=== PATIENT | male | born 1935 | race Caucasian/White ===

== ENCOUNTER 2021-09-05 15:07 | Outpatient (CLI) | payer MEDICARE, SELFPAY | END 2021-09-05 15:08 | disposition home or self-care (01) | LOC: AMB 09-16 08:57 | PROVIDERS: PCP Family Medicine; Visit Provider Emergency Medicine Emergency Medical Services | DX: R53.1 Weakness (principal); S09.90XA Unspecified injury of head, initial encounter; W18.30XA Fall on same level, unspecified, initial encounter; Y92.030 Kitchen in apartment as the place of occurrence of the external cause | CPT/HCPCS: A0425; A0428; A0429 ==

== ENCOUNTER 2021-09-05 15:56 | Emergency (ER) | payer MEDICARE, SELFPAY ==
[2021-09-05 15:56] VITALS: BP 144/92; TEMP 36.2; O2SAT 95; BMI 26.5
[2021-09-05 16:00] VITALS: BP 135/84; BP 135/85; PULSE 68; PULSE 69; RESP 14; O2SAT 94; O2SAT 95
--- NOTE | 2021-09-05 16:57 | CRLHL7_ITS ---
For Patients: As a result of the Century Cures Act, medical imaging exams and procedure reports are released immediately into your electronic medical record. You may view this report before your referring provider. If you have questions, please contact your health care provider. INDICATION: Trauma. TECHNIQUE: Noncontrast axial images. Sagittal and coronal reconstructions. COMPARISON: None. FINDINGS: No abnormal prevertebral soft tissue swelling. No vertebral body malalignment or facet joint subluxation or dislocation. No cervical spine fracture. 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 Moderate to advanced multilevel facet arthrosis. Disc bulge osteophyte complexes are noted at multiple levels, resulting in narrowing of the central spinal canal, which is most significant at C3-4. There is bilateral neural foraminal stenosis at C3-4 and C5-6, and right-sided neural foraminal stenosis at C4-5. IMPRESSION: 1. No cervical spine fracture or traumatic malalignment. 2. Cervical spondylosis as noted above. Dictated by Mu Tam MD @ 09/05/2021 7:10:04 PM Please note that all CT scans at this facility use dose modulation, iterative reconstruction, and/or weight-based dosing when appropriate to reduce radiation dose to as low as reasonably achievable. Dictated by: Mu Tam MD @ 09/05/2021 19:10:14 (Electronically Signed)
--- NOTE | 2021-09-05 16:57 | CRLHL7_ITS ---
For Patients: As a result of the Century Cures Act, medical imaging exams and procedure reports are released immediately into your electronic medical record. You may view this report before your referring provider. If you have questions, please contact your health care provider. INDICATION: Trauma. TECHNIQUE: Axial images. Sagittal and coronal reconstructions. COMPARISON: 01/13/2021. FINDINGS: No skull fracture is identified. There is no abnormal intracranial mass effect or midline shift. No acute intracranial hemorrhage. No new areas of abnormal attenuation are seen within the brain. Stable size and configuration of the CSF spaces. No acute intraorbital abnormality. The paranasal sinuses and mastoids are clear. IMPRESSION: No CT evidence of an acute intracranial abnormality. Dictated by Mu Tam MD @ 09/05/2021 7:01:45 PM Please note that all CT scans at this facility use dose modulation, iterative reconstruction, and/or weight-based dosing when appropriate to reduce radiation dose to as low as reasonably achievable. Dictated by: Mu Tam MD @ 09/05/2021 19:01:59 (Electronically Signed)
--- NOTE | 2021-09-05 16:59 | ED.NURSE ---
Spoke with Dana, on telephone to give update.
[2021-09-05 17:00] VITALS: BP 136/87; PULSE 71; O2SAT 97
--- NOTE | 2021-09-05 17:02 | ED.GENADULT ---
HPI - General Adult General Date Seen: 09/05/21 Chief complaint: Weakness Stated complaint: Fall Time Seen by Provider: 09/05/21 16:32 Source: patient History of Present Illness HPI narrative: Patient is an 86-year-old male who had a fall at home today. He was using his walker, which he is dependent on for walking around, he says he reached forward to grab something, lost his balance and fell back. He hit the back of his head he says very hard on the ground. He denies loss of consciousness, he says he called his right away but even with her help they were unable to get him up. He says that for the past couple of years he has had significantly worsening weakness, and in the past month he has had 3 falls. 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 He was discharged from [facility] about a year ago, as it sounds like they did not feel they had anything else to offer him. He had been going to physical therapy although he stop doing that about a year ago. He says he had talked to Dr. Quintero about resuming that a month ago but hadn't heard anything back. He feels significantly deconditioned, and the past month has been feeling or concerned about his safety at home. He and his have been talking about the possibility of his needing different living conditions. With regard to today's fall, he does not have any significant headache, has not had any nausea or vomiting. He has tightness in his neck although he denies neck pain. He does not have any radiating pain in his arms, no numbness or new weakness. He has generalized weakness in his arms and legs which has been ongoing for the past 2 years. He does not have any chest or back pain. He denies any difficulty breathing. He denies any extremity or abdominal pain. No recent illness, fevers, vomiting, diarrhea, black or bloody stools. No acute changes in his condition. Related Data Home Medications Medication Instructions Recorded Confirmed aspirin 81 mg capsule 81 mg PO DAILY 09/05/21 09/05/21 fluticasone propionate INHALATION 09/05/21 melatonin PO 09/05/21 multivitamin (Daily Vitamin 1 tab PO DAILY 06/30/22 06/30/22 Formula tablet) naproxen sodium 220 mg capsule 220 mg PO BID PRN 09/05/21 09/05/21 (Aleve) Allergies Allergy/AdvReac Type Severity Reaction Status Date / Time cat dander Allergy Mild Verified 09/05/21 16:05 Review of Systems Status of ROS: Reports: 10 or more systems reviewed and unremarkable except as noted in History and below [facility] Medical History No significant past medical history Surgical History History of appendectomy S/P colon resection S/P knee replacement S/P shoulder surgery Social History Smoking Status: Former smoker What tobacco products do you use: cigarettes Smoking quit date/years: >15 years ago Do you use any of these nicotine containing products: None Second hand tobacco smoke exposure: No How often do you have a drink containing alcohol: 2-3 times a week How many standard drinks containing alcohol do you have on a typical day: 1 or 2 How often do you have six or more drinks on one occasion: Daily or almost daily AUDIT-C Alcohol total score: 7 Non-prescribed substance use: denies use Exam Narrative: Exam Narrative: Vital signs as noted above. In general, an alert, nontoxic elderly male. Cervical collar in place. Head: Normocephalic, atraumatic. No hematoma or tenderness. Eyes: Pupils are equal reactive. Extraocular movements are full. Conjunctivae are normal. ENT: Mucous membranes are moist. Throat is normal. Neck: Nontender to palpation. Heart: Regular rate and rhythm. No murmur or rub. Chest is nontender. Lungs: Clear bilaterally. No increased work of breathing, crackles or wheezes. Abdomen: Soft and nontender. No organomegaly. Back: Nontender to palpation. Extremities: Well perfused. No edema. No calf tenderness. Pulses intact. Extremities are nontender, I am able to move bilateral hips without any pain. Neurologic: Patient is alert and oriented to person and place. Speech is fluent. Face is symmetric. Moves all extremities equally. He is able to walk with his walker, although he does require some monitoring. Affect: Normal. Skin: Warm and dry. Well perfused. Const: Vital Signs, click to edit/add: Vital Signs - 24 hr 09/05/21 15:56 09/05/21 16:00 09/05/21 17:00 Temperature 97.2 F L Pulse Rate [Pulse Oximeter] 68 71 Respiratory Rate 14 Blood Pressure [Le ft Upper Arm] 144/92 H 135/84 136/87 Pulse Oximetry 95 95 97 09/05/21 18:00 09/05/21 18:35 Temperature Pulse Rate [Pulse Oximeter] 77 70 Respiratory Rate 14 Blood Pressure [Le ft Upper Arm] 146/90 H 146/79 H Pulse Oximetry 98 96 Documenting provider has reviewed patient's vital signs: yes Course Course Hospital Course: Following initial evaluation, I did order a CT of the head as well as a CT of the cervical spine given head injury with some neck tightness today. By my review, the CT of the head does not show any intracranial hemorrhage or other acute findings. The final radiology read is likewise negative. CT of the cervical spine was read by Radiology as negative for fracture or soft tissue swelling. Cervical collar was removed and he feels much better out of the collar which was becoming quite uncomfortable for him. He does not have any pain moving his neck. I had a lengthy conversation with Mr. Bhardwaj about his current circumstances. He is clearly very distraught about how much strength and independence he has lost over the past several years. He tells me that he and his really agree at this point that he needs more care. There at [facility] and apparently have options in terms of switching to assisted living. They have looked at a place where they could live together, but he says that his thinks they are little bit depressing, and they are considering living perhaps in different facilities, her staying in their current condo and him living across the street in assisted living. This clearly is somewhat distressing to him. It does not sound like they have a clear plan in place at this time. I did really encouraged him to get back involved with physical therapy, as I think he would benefit if nothing else from better strength and conditioning. Initially, he had expressed to the nurse a desire to stay in the hospital tonight, with a plan to go to an assisted living tomorrow. Given that they do not have a specific assisted living plan in place, the hospitalist was concerned that there would not be any kind of disposition available tomorrow. Due to current constraints with bed availability and staffing, the hospitalist did not feel that we could reasonably keep him here while awaiting disposition to whatever assisted living/detention option might eventually be available, given that he is, in fact able to be ambulatory at this time. I spoke with his on the phone as well, who is clearly frustrated that we are not keeping him in the hospital. Ultimately, it seems that she really just wanted him admitted tonight so that she could have a break. It sounds as if she is pretty tired of her chronic weatherization and housing inspector role, and of course is also concerned about his frequent falls I did offer to talk with the hospitalist again about keeping him overnight just to give her night off, with discharge tomorrow back to home, but she said she already had [facility] scheduled to come again tomorrow and she did not want to change those plans. Ultimately, I again think that he really does need different living arrangements, and encouraged her to keep working toward those in as timely manner as possible. For today, I do not see any evidence of injuries. His fall was related to a loss of balance due to his chronic condition and I do not think further workup is needed today. Vital Signs Vital signs: Initial Vital Signs Temperature 97.2 F L 09/05/21 15:56 Temperature Source Temporal Artery Scan 09/05/21 15:56 Blood Pressure 144/92 H 09/05/21 15:56 Blood Pressure Mean 109 09/05/21 15:56 Blood Pressure Position Supine 09/05/21 15:56 Pulse Oximetry 95 09/05/21 15:56 Oxygen Delivery Method 09/05/21 15:56 Vital Signs Temperature 97.2 F L 09/05/21 15:56 Blood Pressure 144/92 H 09/05/21 15:56 Pulse Oximetry 95 09/05/21 15:56 Temperature 97.2 F L 09/05/21 15:56 Pulse Rate 70 09/05/21 18:35 Respiratory Rate 14 09/05/21 18:35 Blood Pressure 146/79 H 09/05/21 18:35 Pulse Oximetry 96 09/05/21 18:35 Discharge Plan Discharge Clinical Impression: Fall Patient Disposition: Home, Self-Care Condition: Stable Instructions: Fall Prevention for Older Adults (ED) Additional Instructions: Continue work toward alternate living arrangements. Physical therapy as we discussed. Primary care follow-up as needed. Prescriptions: No Action aspirin 81 mg capsule 81 mg PO DAILY 0RF melatonin PO 0RF fluticasone propionate inhalation 0RF naproxen sodium [Aleve] 220 mg capsule 220 mg PO BID PRN0RF multivitamin [Daily Vitamin Formula] Tablet 1 tab PO DAILY 0RF Follow Up/Referrals: Hipolito Quintero MD [Primary Care Provider] - Stand Alone Forms: Yesmail Info Instructions
--- NOTE | 2021-09-05 17:58 | ED.NURSE ---
Patient helped to talk with via telephone.
[2021-09-05 18:00] VITALS: BP 146/90; PULSE 77; O2SAT 98
[2021-09-05 18:35] VITALS: BP 146/79; PULSE 70; RESP 14; O2SAT 96
--- NOTE | 2021-09-05 19:02 | ED.NURSE ---
Rounded on patient. Has discomfort from c-collar. MD notified, will await results from CT scans prior to taken off.
--- NOTE | 2021-09-05 19:37 | ED.NURSE ---
C-collar removed. Patient did trial ambulation, did not feel stable and needed to return to the room after a few feet. MD updated. Patient brought food and drink.
--- NOTE | 2021-09-05 20:00 | ED.NURSE ---
Spoke with patient and about discharge plan back to home. Both patient and has concerns about his safety. These were relayed back to MD and phone between and MD was facilitated.
--- NOTE | 2021-09-05 21:11 | PC.NURSE ---
Recieved a call from BERNY Concepcion for pt [phone]. She stated he would need transportation home and help getting into his bed. ED charge notified.
--- NOTE | 2021-09-05 21:52 | ED.NURSE ---
Spoke with BERNY about discharge plan to return patient home. They report that the only safe way to get him home is via ambulance.
== END 2021-09-05 22:00 | disposition home or self-care (01) ==
PROVIDERS: Emergency Provider Emergency Medicine; PCP Family Medicine
DX: R26.89 Other abnormalities of gait and mobility (principal); W19.XXXA Unspecified fall, initial encounter
CPT/HCPCS: 70450; 72125; 99284; 99285; 99291; G0390

== ENCOUNTER 2021-09-05 21:48 | Outpatient (CLI) | payer MEDICARE, SELFPAY | END 2021-09-05 21:49 | disposition home or self-care (01) | LOC: AMB 09-16 10:03 | PROVIDERS: PCP Family Medicine; Visit Provider Emergency Medicine | DX: R53.1 Weakness (principal); R26.9 Unspecified abnormalities of gait and mobility; M54.2 Cervicalgia | CPT/HCPCS: A0425; A0428 ==

== ENCOUNTER 2022-04-28 22:04 | Outpatient (CLI) | payer MEDICARE, SELFPAY | END 2022-04-28 22:05 | disposition home or self-care (01) | LOC: AMB 04-29 11:20 | PROVIDERS: PCP Family Medicine; Visit Provider Family Medicine | DX: S79.911A Unspecified injury of right hip, initial encounter (principal); W18.39XA Other fall on same level, initial encounter; Y92.031 Bathroom in apartment as the place of occurrence of the external cause | CPT/HCPCS: A0425; A0429 ==

== ENCOUNTER 2022-04-28 22:38 | Inpatient (IN) | payer MEDICARE, SELFPAY ==
[2022-04-28 22:45] VITALS: BP 185/101; PULSE 71; TEMP 36.3; O2SAT 97; BMI 27.5
[2022-04-28 23:44] VITALS: BP 163/98; PULSE 78; RESP 16; O2SAT 97
[2022-04-29] VITALS (30 sets, daily range): BP systolic 104–189; BP diastolic 67–108; PULSE 59–102; RESP 14–20; TEMP 35.7–37.1; O2SAT 92–100; BMI 27.5
--- NOTE | 2022-04-29 00:02 | CRLHL7_ITS ---
For Patients: As a result of the Century Cures Act, medical imaging exams and procedure reports are released immediately into your electronic medical record. You may view this report before your referring provider. If you have questions, please contact your health care provider. Indication: Fall Technique: Frontal view pelvis, two-view right hip Comparison: None Findings: Bones: Mildly displaced right femoral neck fracture. Joint spaces: Mild degenerative changes in the right hip joint. Soft tissues: Unremarkable. Impression: Acute right femoral neck fracture. Dictated by Cookie Denny MD @ 04/29/2022 1:06:36 AM (Electronically Signed)
--- NOTE | 2022-04-29 00:02 | ED.NURSE ---
Soft collar applied for comfort.
[2022-04-29] MEDS: fentaNYL 100 MCG/2 ML inj 50 MCG IVP (00:16)
--- NOTE | 2022-04-29 00:30 | CRLHL7_ITS ---
For Patients: As a result of the Century Cures Act, medical imaging exams and procedure reports are released immediately into your electronic medical record. You may view this report before your referring provider. If you have questions, please contact your health care provider. Indication: Fall Technique: Chest 1 view Comparison: None Findings/Impression: Cardiovascular and mediastinum: Heart size and vasculature are normal in caliber and appearance. Mediastinum is within normal limits. Lungs and pleural space: Lungs are clear. No sign of infiltrate or mass. No sign of pleural effusion. No pneumothorax. Bones and soft tissues: Severe degenerative changes in the left glenohumeral joint. Dictated by Cookie Denny MD @ 04/29/2022 1:07:40 AM (Electronically Signed)
[2022-04-29 01:19] LABS: SARS PCR* Negative SARS-CoV-2 (Negative)
[2022-04-29] MEDS: 0.9 % SODIUM CHLORIDE 1000 ml 1,000 ML IV (02:04)
--- NOTE | 2022-04-29 02:13 | ED.NURSE ---
Report to Med Surg. Patient will be going to room 257.
[2022-04-29 02:16] LABS: Basophils Absolute Auto 0.02 K/uL (0.00-0.30); Basophils Percent Auto 0.2 % (0.0-3.0); Eosinophils Percent Auto 1.1 % (0.0-7.0); Hematocrit 43.7 % (37.0-53.0); Hemoglobin* 14.6 gm/dL (13.5-17.5); Immature Granulocytes Abs Auto 0.03 K/uL (0.00-0.30); Immature Granulocytes Pct Auto 0.3 %; Lymphocytes Percent Auto 14.1 % (20-44); Mean Corpuscular HGB Conc 33 gm/dL (32-36); Mean Corpuscular Hemoglobin 31 pg (26-34); Mean Corpuscular Volume 91 fL (80-100); Monocytes Percent Auto 6.1 % (0.0-11.0); Neutrophils Percent Auto 78.2 % (42.0-72.0); Platelet Count* 236 K/uL (140-440); RDW Coefficient of Variation % 12.6 % (11.5-15.5); Red Blood Count 4.78 m/uL (4.30-5.90); White Blood Count* 9.52 K/uL (4.50-11.00)
[2022-04-29 02:20] LABS: Slide Review Reflex No
[2022-04-29] MEDS: fentaNYL 100 MCG/2 ML inj 25 MCG IVP ×2 (02:27→06:54)
[2022-04-29 02:29] LABS: Sodium* 139 mmol/L (135-149)
[2022-04-29 02:30] LABS: Blood Urea Nitrogen* 21 mg/dL (7-30); Carbon Dioxide* 27 mmol/L (20-32); Creatinine* 0.8 mg/dL (0.5-1.5); Est. Creatinine Clearance* 58.57; Estimated Glomerular Filt Rate 87 ml/min; Glucose* 108 mg/dL (60-115); Potassium* 4.1 mmol/L (3.6-5.1)
[2022-04-29 02:31] LABS: Calcium* 8.6 mg/dL (8.4-10.6)
[2022-04-29 02:49] LABS: Chloride* 108 mmol/L (96-114)
--- NOTE | 2022-04-29 03:57 | P.IMCN_ITS ---
Date of Consult Consult date: 04/29/22 Primary Care Provider: Hipolito Quintero MD Consult Narrative Narrative: Wicho Bhardwaj is a 86 [address] old [address] [facility] Medical History No significant past medical history Surgical History History of appendectomy S/P colon resection S/P knee replacement S/P shoulder surgery Social History (Updated 09/05/21 @ 23:08 by Lia Streeter MD) Highest level of school completed/degree received: Doctoral degree Smoking Status: Former smoker Do you use any of these nicotine containing products: None Second hand tobacco smoke exposure: No How often do you have a drink containing alcohol: never How often do you have six or more drinks on one occasion: Never AUDIT-C Alcohol total score: 0 Non-prescribed substance use: denies use Caffeine: Yes service: Yes Meds Home Medications and Allergies Home Medications Medication Instructions Recorded Confirmed Type aspirin 81 mg capsule 81 mg PO DAILY 09/05/21 03/12/22 History fluticasone propionate inhalation 09/05/21 03/12/22 History melatonin PO 09/05/21 03/12/22 History multivitamin (Daily Vitamin 1 tab PO DAILY 09/05/21 03/12/22 History Formula tablet) naproxen sodium 220 mg capsule 220 mg PO BID PRN 09/05/21 03/12/22 History (Aleve) Allergies Allergy/AdvReac Type Severity Reaction Status Date / Time cat dander Allergy Mild Verified 03/12/22 11:27 Exam Const: Vital Signs, click to edit/add: Vital Signs - 24 hr 04/28/22 22:45 04/28/22 23:44 04/29/22 00:46 Temperature 97.3 F L Pulse Rate Pulse Rate [Pulse Oximeter] 71 78 70 Respiratory Rate 16 16 Blood Pressure Blood Pressure [Le ft Arm] Blood Pressure [Ri ght Upper Arm] 185/101 H 163/98 H 189/94 H Pulse Oximetry 97 97 96 Oxygen Delivery Me thod Room Air Room Air Room Air 04/29/22 00:45 04/29/22 00:46 04/29/22 01:00 Temperature Pulse Rate 65 74 66 Pulse Rate [Pulse Oximeter] Respiratory Rate Blood Pressure 189/94 H Blood Pressure [Le ft Arm] Blood Pressure [Ri ght Upper Arm] Pulse Oximetry 93 93 93 Oxygen Delivery Me thod 04/29/22 01:02 04/29/22 01:03 04/29/22 01:15 Temperature Pulse Rate 72 69 59 L Pulse Rate [Pulse Oximeter] Respiratory Rate Blood Pressure 135/89 Blood Pressure [Le ft Arm] Blood Pressure [Ri ght Upper Arm] Pulse Oximetry 94 93 92 Oxygen Delivery Me thod 04/29/22 01:30 04/29/22 01:45 04/29/22 02:02 Temperature Pulse Rate 65 72 72 Pulse Rate [Pulse Oximeter] Respiratory Rate Blood Pressure 167/107 H Blood Pressure [Le ft Arm] Blood Pressure [Ri ght Upper Arm] Pulse Oximetry 93 93 93 Oxygen Delivery Me thod 04/29/22 02:19 04/29/22 02:37 04/29/22 02:37 Temperature 98 F Pulse Rate 82 Pulse Rate [Pulse Oximeter] 87 Respiratory Rate 18 18 Blood Pressure 170/98 H Blood Pressure [Le ft Arm] 152/86 H Blood Pressure [Ri ght Upper Arm] Pulse Oximetry 95 94 94 Oxygen Delivery Me thod Room Air Room Air Labs Labs: Short CBC 04/29/22 Range/Units 02:05 WBC 9.52 (4.50-11.00) K/uL Hgb 14.6 (13.5-17.5) gm/dL Hct 43.7 (37.0-53.0) % Plt Count 236 (140-440) K/uL BMP 04/29/22 02:05 Sodium 139 Potassium 4.1 Chloride 108 Carbon Dioxide 27 BUN 21 Creatinine 0.8 Glucose 108 Calcium 8.6 Assessment and Plan Assessment and plan (1) Femoral neck fracture: [facility]: [facility] NOTE eHospitalist was contacted by Dr. Lacy with request of admission support for Mr. Wicho Bhardwaj HPI: In summary Mr. Bhardwaj is a very pleasant 86-year-old gentleman with medical history of insomnia, gait disturbance, nonspecific cerebellar degeneration disorder, and progressive deconditioning, baseline needing walker still having falls 3 in the last 6 months and more than that in the preceding year. He was at his baseline health when he was about to go to his bed on the night of , he states he had taken Ambien, although I could not see on his med list although there is melatonin, he was trying to turn around to find his way when by unknown mechanism he fell down onto the ground hitting his back and head without losing consciousness, having any palpitations or other symptoms. He denies any headache, dizziness focal weakness following the event. He does not take any anticoagulants but takes baby aspirin for primary prophylaxis, denies any heart disease, diabetes or CKD. Immediately after that he started having severe right hip pain and inability to ambulate, he had to be supported and brought to ER where evaluation by x-ray showed right femoral neck fracture. He was given fentanyl for pain control, lab work including CBC and BMP were within normal limits. Emergency provider consulted orthopedics who will see the patient tomorrow for likely surgical fixation. Last time he had shoulder surgery in 2009., Is not much physically active due to gait disturbance. But denies any chest pain. Denies any other extremity pain and limitation of movement or deficit. No nausea or vomiting. Home Medications: Melatonin, aspirin, fluticasone, multivitamin, naproxen,? Ambien as per patient's verbal report although no record found Pertinent Medical History: Insomnia, gait disturbance, degenerative cerebellar disorder Pertinent Social History: Uses walker to walk, lives at home Exam (performed via interactive video with assistance of bedside nurse): General: [alert, cooperative, no acute distress] HEENT: EOMI grossly [oral mucosa moist without erythema] Lungs: [Equal air entry bilaterally , no wheeze] CV: [regular rate and rhythm without loud murmur rub or gallop] Abd: [denies tenderness and does not exhibit signs of pain with palpation done by bedside nurse] Ext: [no pitting edema noted] movement on right lower extremity deferred due to anticipated pain given fracture. Skin: [no rashes, bruises or lesions appreciated on gross visualization of exposed skin] Neuro: [alert, oriented x . EOMI, moves all extremities without any significant focal deficit appreciated by nurse] Assessment and Plan: Fall from standing height in elderly, likely related to gait and equilibrium disorder Acute right femoral neck fracture secondary to above N.p.o., orthopedics eval in the morning for likely surgical repair after discussion with patient Pain control with fentanyl, as needed MiraLAX LR 75 cc/h while n.p.o. Patient reports taking his insomnia pill already, he reports it is Ambien, I see melatonin though on his list Avoid Ambien in future if possible as it can increase the chances of fall by drowsiness Hold aspirin that he takes for primary prophylaxis Stable comorbidities For gait disorder recommend outpatient physical therapy and encourage use of ambulatory assist devices Degenerative cerebellar disorder, physical deconditioning Resume appropriate home medications once reconciled, patient having hard time to remember his meds at this time Patient has requested DNR, SCDs for DVT prophylaxis, postop will need chemical prophylaxis, defer to orthopedics, nonweightbearing on right lower extremity for now Thank you for including [facility] Hospitalist in the patients care. This ser vice is available for further assistance as requested by your care team by calling [phone].
--- NOTE | 2022-04-29 04:24 | ED_ITS ---
HPI - Fall General Chief Complaint: Fall/Minor Trauma Stated Complaint: hip injury Time Seen by Provider: 04/28/22 23:00 History of Present Illness HPI Narrative: 86-year-old man presenting to the emergency department via EMS following a fall outside. He was with his walker and [employer]. Head was apparently controlled. Did not hit head. There was no syncope. 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 Had been evaluated for Parkinson's but this was thought not to be the case. He is not anticoagulated but does take a daily low- dose aspirin. There is no described lightheadedness or shortness of breath around this fall. He does however complain of right mid thigh area pain. He is thinking he did not hurt his hip due to this mid thigh location of pain. Any movement hurts a great deal. Does have chronic neck pain. No exacerbation of this really. No back pain. Related Data Home Medications Medication Instructions Recorded Confirmed aspirin 81 mg capsule 81 mg PO DAILY 09/05/21 03/12/22 fluticasone propionate inhalation 09/05/21 03/12/22 melatonin PO 09/05/21 03/12/22 multivitamin (Daily Vitamin 1 tab PO DAILY 09/05/21 03/12/22 Formula tablet) naproxen sodium 220 mg capsule 220 mg PO BID PRN 09/05/21 03/12/22 (Aleve) Allergies Allergy/AdvReac Type Severity Reaction Status Date / Time cat dander Allergy Mild Verified 03/12/22 11:27 Review of Systems Status of ROS: Reports: 6 or more systems reviewed and unremarkable except as noted in History and below [facility] Medical History No significant past medical history Surgical History History of appendectomy S/P colon resection S/P knee replacement S/P shoulder surgery Social History Highest level of school completed/degree received: Doctoral degree Smoking Status: Former smoker Do you use any of these nicotine containing products: None Second hand tobacco smoke exposure: No How often do you have a drink containing alcohol: never How often do you have six or more drinks on one occasion: Never AUDIT-C Alcohol total score: 0 Non-prescribed substance use: denies use Caffeine: Yes service: Yes Exam Narrative: Exam Narrative: Very pleasant. At times hesitating in speech. Mildly hard of hearing. Eyes are moist. Skin is warm and dry. Head does look to be atraumatic. Neck is a little stiff. A little sore in the paracervical musculature. No back pain to palpation. Lungs appear to be clear. Heart is in a regular rate and rhythm. Abdomen is soft and nontender. There is no pain to palpation over the anterior iliac crest nor is there appreciable instability. Trace dependent pretibial edema. The right leg is outwardly rotated. Pain is not exactly reproducible to palpation about the thigh as he notes. There is though pain to any movement of the right leg. Well perfused peripherally. Const: Vital Signs, click to edit/add: Vital Signs - 24 hr 04/28/22 22:45 04/28/22 23:44 04/29/22 00:46 Temperature 97.3 F L Pulse Rate Pulse Rate [Pulse Oximeter] 71 78 70 Respiratory Rate 16 16 Blood Pressure Blood Pressure [Ri ght Upper Arm] 185/101 H 163/98 H 189/94 H Pulse Oximetry 97 97 96 Oxygen Delivery Me thod Room Air Room Air Room Air 04/29/22 00:45 04/29/22 00:46 04/29/22 01:00 Temperature Pulse Rate 65 74 66 Pulse Rate [Pulse Oximeter] Respiratory Rate Blood Pressure 189/94 H Blood Pressure [Ri ght Upper Arm] Pulse Oximetry 93 93 93 Oxygen Delivery Me thod 04/29/22 01:02 04/29/22 01:03 04/29/22 01:15 Temperature Pulse Rate 72 69 59 L Pulse Rate [Pulse Oximeter] Respiratory Rate Blood Pressure 135/89 Blood Pressure [Ri ght Upper Arm] Pulse Oximetry 94 93 92 Oxygen Delivery Me thod 04/29/22 01:30 04/29/22 01:45 04/29/22 02:02 Temperature Pulse Rate 65 72 72 Pulse Rate [Pulse Oximeter] Respiratory Rate Blood Pressure 167/107 H Blood Pressure [Ri ght Upper Arm] Pulse Oximetry 93 93 93 Oxygen Delivery Me thod 04/29/22 02:19 Temperature Pulse Rate 82 Pulse Rate [Pulse Oximeter] Respiratory Rate Blood Pressure 170/98 H Blood Pressure [Ri ght Upper Arm] Pulse Oximetry 95 Oxygen Delivery Me thod Documenting provider has reviewed patient's vital signs: yes Course Vital Signs Vital signs: Initial Vital Signs Temperature 97.3 F L 04/28/22 22:45 Temperature Source Temporal Artery Scan 04/28/22 22:45 Pulse Rate 71 04/28/22 22:45 Blood Pressure 185/101 H 04/28/22 22:45 Blood Pressure Mean 129 04/28/22 22:45 Blood Pressure Position Supine 04/28/22 22:45 Pulse Oximetry 97 04/28/22 22:45 Oxygen Delivery Method 04/28/22 22:45 Vital Signs Temperature 97.3 F L 04/28/22 22:45 Pulse Rate 71 04/28/22 22:45 Blood Pressure 185/101 H 04/28/22 22:45 Pulse Oximetry 97 04/28/22 22:45 Oxygen Delivery Method 04/28/22 22:45 Temperature 98 F 04/29/22 02:37 Pulse Rate 87 04/29/22 02:37 Respiratory Rate 18 04/29/22 02:37 Blood Pressure 152/86 H 04/29/22 02:37 Pulse Oximetry 94 04/29/22 02:37 Oxygen Delivery Method 04/29/22 02:37 MDM - Fall MDM Narrative Medical decision making narrative: Unfortunate fall in setting of chronic gait instability. I would suspect a right hip fracture somewhere. Possible pelvic involvement otherwise. Does not appear to have been a syncopal event so unnecessary cardiac or CVA workup. This does not appear to be infectious either. Prior to imaging was given dose of fentanyl. Was also initiated on a L of normal saline. Initial x-ray of the right hip does show by my read a femoral neck fracture mildly displaced. As moving towards potential surgery, chest x-ray is also done. One-view chest by my read is without infiltrate or acute cardiopulmonary abnormality. Normal cardiac silhouette. I called to Orthopedics. They anticipate seeing Mr. Bhardwaj in the morning. Admitted after discussion with hospitalist coverage. Medical Records Attestation: I reviewed the patient's medical records. Lab Data Attestation: I reviewed the patient's lab results. Labs: Lab Results 04/29/22 04/29/22 04/29/22 Range/Units 00:36 02:05 02:05 WBC 9.52 (4.50-11.00) K/uL RBC 4.78 (4.30-5.90) m/uL Hgb 14.6 (13.5-17.5) gm/dL Hct 43.7 (37.0-53.0) % MCV 91 (80-100) fL MCH 31 (26-34) pg MCHC 33 (32-36) gm/dL RDW Coeff of Matilda 12.6 (11.5-15.5) % Plt Count 236 (140-440) K/uL Neut % (Auto) 78.2 H (42.0-72.0) % Lymph % (Auto) 14.1 L (20-44) % Banner % (Auto) 6.1 (0.0-11.0) % Eos % (Auto) 1.1 (0.0-7.0) % Baso % (Auto) 0.2 (0.0-3.0) % Neut # (Auto) 7.40 H (1.7-7.0) K/uL Lymph # (Auto) 1.30 (0.90-2.90) K/uL Banner # (Auto) 0.60 (0.00-0.90) K/UL Eos # (Auto) 0.10 (0.00-0.50) K/uL Baso # (Auto) 0.02 (0.00-0.30) K/uL Sodium 139 (135-149) mmol/L Potassium 4.1 (3.6-5.1) mmol/L Chloride 108 (96-114) mmol/L Carbon Dioxide 27 (20-32) mmol/L BUN 21 (7-30) mg/dL Creatinine 0.8 (0.5-1.5) mg/dL Estimated Creat Clear 58.57 Estimated GFR 87 ml/min Glucose 108 (60-115) mg/dL Calcium 8.6 (8.4-10.6) mg/dL SARS-CoV-2 (PCR) Negative SARS-CoV-2 (Negative) Discharge Plan Discharge Clinical Impression: Femoral neck fracture Patient Disposition: Admitted As Inpatient Condition: Stable Activity Level: No Weight Bearing
[2022-04-29] MEDS: LACTATED RINGERS 1000 ML 1,000 ML 75 ML IV ×2 (04:50→18:29)
--- NOTE | 2022-04-29 07:31 | PC.NURSE ---
Patient is alert and oriented x3, able to verbalize needs to staff using call light. Pt NWB to right leg.
--- NOTE | 2022-04-29 11:13 | P.IMHP_ITS ---
Hospitalist- H&P: HPI History of Present Illness Date Seen: 04/29/22 Chief complaint: hip injury Narrative: Wicho Bhardwaj is a 86 year old male admitted to the hospital after a fall at home. He had an accidental fall at home without loss of consciousness. When this occurred he was having right hip pain and unable to bear weight. He came to the emergency department where he was found to have a right femoral neck fracture. Other evaluation did not show any other significant injury. He did not hit his head. He does have chronic neck pain but does not think he had a neck injury. He reports no other pain. He has not had any recent symptoms of illness. Patient has had longstanding history of problems with gait and balance. He does have frequent falls. He walks with a walker. He and his live at [facility] on the [address]. They have hired home instead child care center administrator for 13 hours a day. He actually fell with his child care center administrator nearby. He has been evaluated [facility] over the last several years for his problems with balance and falling. There was suspicion he may have a parkinsonian syndrome. He did take Sinemet which made him worse. He does have some tremor, bradykinesia and imbalance. 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 Review of Systems Narrative: No other injury. No recent illness. No personal or family history of problems with anesthesia, bleeding or thrombophilia. [facility] Medical History (Updated 04/29/22 @ 11:58 by Baron Ponce MD) Balance problems Cerebellar ataxia Chronic nasal congestion Closed fracture of rib No significant past medical history Obstructive sleep apnea Recurrent falls Restless legs Unsteady gait Weakness Surgical History (Updated 04/29/22 @ 11:54 by Baron Ponce MD) History of appendectomy History of cataract surgery History of hemorrhoidectomy History of nasal surgery History of spinal fusion History of tonsillectomy and adenoidectomy S/P colon resection S/P knee replacement S/P shoulder surgery Social History (Updated 04/29/22 @ 11:55 by Baron Ponce MD) Narrative: Lives with his at [facility] on the [place]. They hire home instead for 13 hours a day to provide care assistance. 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 Healthcare power of assistant attorney general is primarily his and secondarily his friend Hipolito Walls. Code status is DNR. He does not smoke. He does not drink alcohol. Highest level of school completed/degree received: Doctoral degree Smoking Status: Former smoker Do you use any of these nicotine containing products: None Second hand tobacco smoke exposure: No How often do you have a drink containing alcohol: never How often do you have six or more drinks on one occasion: Never AUDIT-C Alcohol total score: 0 Non-prescribed substance use: denies use Caffeine: Yes service: Yes Meds Home Medications and Allergies Home Medications Medication Instructions Recorded Confirmed Type acetaminophen 500 mg tablet 1,000 mg PO HS 04/29/22 04/29/22 History aspirin 81 mg tablet,delayed 81 mg PO DAILY 04/29/22 04/29/22 History release calcium carbonate 600 mg-vitamin 1 tab PO BIDWM 04/29/22 04/29/22 History D3 10 mcg (400 unit) chewable tablet (Calcium 600 with Vitamin D3) fluticasone propionate 50 2 spray intranasal DAILY 04/29/22 04/29/22 History mcg/actuation nasal spray,suspension ibuprofen 200 mg tablet 400 mg PO Q6H PRN 04/29/22 04/29/22 History melatonin 3 mg tablet 3 mg PO HS PRN 04/29/22 04/29/22 History naproxen sodium 220 mg tablet 220 mg PO HS 04/29/22 04/29/22 History trospium 20 mg tablet 20 mg PO BIDWM 04/29/22 04/29/22 History vitamins A,C,S-enuc-uacmur 2,148 1 tab PO 2XW 04/29/22 04/29/22 History mcg-113 mg-45 mg-17.4 mg tablet (PreserVision AREDS) zolpidem 5 mg tablet 7.5 mg PO HS PRN sleep 04/29/22 04/29/22 History Allergies Allergy/AdvReac Type Severity Reaction Status Date / Time cat dander Allergy Mild Verified 03/12/22 11:27 Exam Narrative: Exam Narrative: He is alert and appears in no distress. He gives his own history. He struggles to resides member some details. He has fairly slow and halting speech. He is otherwise fluent. No apparent head trauma. Eyes are normal. No facial asymmetry. Neck is supple. He has marked rigidity of his neck which she attributes to chronic posterior neck pain. Respirations are clear to auscultation. Cardiovascular: S1, S2, regular rate and rhythm. No murmur gallop or rub. Abdomen: Bowel sounds active. Abdomen is soft without tenderness or mass. External genitalia normal. Extremities with diminished pedal pulses. Warm to touch. No significant edema. He moves both feet and ankles well. Const: Vital Signs, click to edit/add: Vital Signs - 24 hr 04/28/22 22:45 04/28/22 23:44 04/29/22 00:46 Temperature 97.3 F L Pulse Rate Pulse Rate [Pulse Oximeter] 71 78 70 Respiratory Rate 16 16 Blood Pressure Blood Pressure [Le ft Arm] Blood Pressure [Ri ght Upper Arm] 185/101 H 163/98 H 189/94 H Pulse Oximetry 97 97 96 Oxygen Delivery Me thod Room Air Room Air Room Air 04/29/22 00:45 04/29/22 00:46 04/29/22 01:00 Temperature Pulse Rate 65 74 66 Pulse Rate [Pulse Oximeter] Respiratory Rate Blood Pressure 189/94 H Blood Pressure [Le ft Arm] Blood Pressure [Ri ght Upper Arm] Pulse Oximetry 93 93 93 Oxygen Delivery Me thod 04/29/22 01:02 04/29/22 01:03 04/29/22 01:15 Temperature Pulse Rate 72 69 59 L Pulse Rate [Pulse Oximeter] Respiratory Rate Blood Pressure 135/89 Blood Pressure [Le ft Arm] Blood Pressure [Ri ght Upper Arm] Pulse Oximetry 94 93 92 Oxygen Delivery Me thod 04/29/22 01:30 04/29/22 01:45 04/29/22 02:02 Temperature Pulse Rate 65 72 72 Pulse Rate [Pulse Oximeter] Respiratory Rate Blood Pressure 167/107 H Blood Pressure [Le ft Arm] Blood Pressure [Ri ght Upper Arm] Pulse Oximetry 93 93 93 Oxygen Delivery Me thod 04/29/22 02:19 04/29/22 02:37 04/29/22 02:37 Temperature 98 F Pulse Rate 82 Pulse Rate [Pulse Oximeter] 87 Respiratory Rate 18 18 Blood Pressure 170/98 H Blood Pressure [Le ft Arm] 152/86 H Blood Pressure [Ri ght Upper Arm] Pulse Oximetry 95 94 94 Oxygen Delivery Me thod Room Air Room Air Documenting provider has reviewed patient's vital signs: yes Hospitalist - H&P: Result Labs Labs: Short CBC 04/29/22 Range/Units 02:05 WBC 9.52 (4.50-11.00) K/uL Hgb 14.6 (13.5-17.5) gm/dL Hct 43.7 (37.0-53.0) % Plt Count 236 (140-440) K/uL BMP 04/29/22 02:05 Sodium 139 Potassium 4.1 Chloride 108 Carbon Dioxide 27 BUN 21 Creatinine 0.8 Glucose 108 Calcium 8.6 Assessment and Plan Assessment and plan (1) Femoral neck fracture: Status: Acute (2) Recurrent falls: Status: Acute (3) Cerebellar ataxia: Status: Acute (4) Obstructive sleep apnea: Problem comment: Have bring in home CPAP Status: Acute (5) Unsteady gait: Problem comment: Physical therapy after surgery Status: Acute Plan Patient is admitted to the hospital for bipolar arthroplasty of his right femoral neck fracture. He will likely need correction facility for rehab after surgery. I discussed this with the patient. He is unhappy about this possibility. Total time spent today is 75 minutes, 55 minutes in coordination of care and discussing with patient other providers ongoing evaluation management of hip fracture
--- NOTE | 2022-04-29 14:39 | P.ORCN_ITS ---
History of Present Illness HPI Date Seen: 04/29/22 Requesting physician: Baron Ponce Chief complaint: hip injury Narrative: Dr. Ponce has requested orthopedic consultation for right hip fracture. Patient is an 86-year-old community ambulator with a walker. He fell yesterday sustaining a displaced right femoral neck fracture. He has never injured this hip or had surgery on it previously. Review of Systems Narrative: The patient denies: Fever, night sweats, shaking chills, nausea, vomiting, diarrhea, chest pain, chest pressure, shortness of breath, no rash, no change in hearing or vision, no issues with bleeding or clotting [facility] Medical History Balance problems Cerebellar ataxia Chronic nasal congestion Closed fracture of rib No significant past medical history Obstructive sleep apnea Recurrent falls Restless legs Unsteady gait Weakness Surgical History History of appendectomy History of cataract surgery History of hemorrhoidectomy History of nasal surgery History of spinal fusion History of tonsillectomy and adenoidectomy S/P colon resection S/P knee replacement S/P shoulder surgery Social History Narrative: Lives with his at [facility] on the [address]. They hire home in stead for 13 hours a day to provide care assistance. 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 Healthcare power of linux developer is primarily his and secondarily his friend Hipolito Walls. Code status is DNR. He does not smoke. He does not drink alcohol. Highest level of school completed/degree received: Doctoral degree Smoking Status: Former smoker Do you use any of these nicotine containing products: None Second hand tobacco smoke exposure: No How often do you have a drink containing alcohol: never How often do you have six or more drinks on one occasion: Never AUDIT-C Alcohol total score: 0 Non-prescribed substance use: denies use Caffeine: Yes service: Yes Meds Home Medications and Allergies Home Medications Medication Instructions Recorded Confirmed Type acetaminophen 500 mg tablet 1,000 mg PO HS 04/29/22 04/29/22 History aspirin 81 mg tablet,delayed 81 mg PO DAILY 04/29/22 04/29/22 History release calcium carbonate 600 mg-vitamin 1 tab PO BIDWM 04/29/22 04/29/22 History D3 10 mcg (400 unit) chewable tablet (Calcium 600 with Vitamin D3) fluticasone propionate 50 2 spray intranasal DAILY 04/29/22 04/29/22 History mcg/actuation nasal spray,suspension ibuprofen 200 mg tablet 400 mg PO Q6H PRN 04/29/22 04/29/22 History melatonin 3 mg tablet 3 mg PO HS PRN 04/29/22 04/29/22 History naproxen sodium 220 mg tablet 220 mg PO HS 04/29/22 04/29/22 History trospium 20 mg tablet 20 mg PO BIDWM 04/29/22 04/29/22 History vitamins A,C,B-oanz-ssxwvp 2,148 1 tab PO 2XW 04/29/22 04/29/22 History mcg-113 mg-45 mg-17.4 mg tablet (PreserVision AREDS) zolpidem 5 mg tablet 7.5 mg PO HS PRN sleep 04/29/22 04/29/22 History Allergies Allergy/AdvReac Type Severity Reaction Status Date / Time cat dander Allergy Mild Verified 03/12/22 11:27 Ortho Exam Narrative Exam Narrative: The patient is alert and oriented x3, in no acute distress, they are able to converse in a normal speaking voice without obvious hearing loss and with nonlabored breathing. The patient is examined supine in the hospital bed. The right lower extremity is externally rotated. The skin about the hip is intact and normal. CMS to the foot is normal. Const Vital Signs, click to edit/add: Vital Signs - 24 hr 04/28/22 22:45 04/28/22 23:44 04/29/22 00:46 Temperature 97.3 F L Pulse Rate Pulse Rate [Pulse Oximeter] 71 78 70 Respiratory Rate 16 16 Blood Pressure Blood Pressure [Left Arm] Blood Pressure [Right Upper Arm] 185/101 H 163/98 H 189/94 H Pulse Oximetry 97 97 96 Oxygen Delivery Method Room Air Room Air Room Air 04/29/22 00:45 04/29/22 00:46 04/29/22 01:00 Temperature Pulse Rate 65 74 66 Pulse Rate [Pulse Oximeter] Respiratory Rate Blood Pressure 189/94 H Blood Pressure [Left Arm] Blood Pressure [Right Upper Arm] Pulse Oximetry 93 93 93 Oxygen Delivery Method 04/29/22 01:02 04/29/22 01:03 04/29/22 01:15 Temperature Pulse Rate 72 69 59 L Pulse Rate [Pulse Oximeter] Respiratory Rate Blood Pressure 135/89 Blood Pressure [Left Arm] Blood Pressure [Right Upper Arm] Pulse Oximetry 94 93 92 Oxygen Delivery Method 04/29/22 01:30 04/29/22 01:45 04/29/22 02:02 Temperature Pulse Rate 65 72 72 Pulse Rate [Pulse Oximeter] Respiratory Rate Blood Pressure 167/107 H Blood Pressure [Left Arm] Blood Pressure [Right Upper Arm] Pulse Oximetry 93 93 93 Oxygen Delivery Method 04/29/22 02:19 04/29/22 02:37 04/29/22 02:37 Temperature 98 F Pulse Rate 82 Pulse Rate [Pulse Oximeter] 87 Respiratory Rate 18 18 Blood Pressure 170/98 H Blood Pressure [Left Arm] 152/86 H Blood Pressure [Right Upper Arm] Pulse Oximetry 95 94 94 Oxygen Delivery Method Room Air Room Air 04/29/22 11:00 Temperature 98.7 F Pulse Rate Pulse Rate [Pulse Oximeter] 94 Respiratory Rate 14 Blood Pressure Blood Pressure [Left Arm] 152/90 H Blood Pressure [Right Upper Arm] Pulse Oximetry 94 Oxygen Delivery Method Room Air Results Labs Labs: Laboratory Results - last 48 hr 04/29/22 04/29/22 04/29/22 00:36 02:05 02:05 WBC 9.52 RBC 4.78 Hgb 14.6 Hct 43.7 MCV 91 MCH 31 MCHC 33 RDW Coeff of Matilda 12.6 Plt Count 236 Neut % (Auto) 78.2 H Lymph % (Auto) 14.1 L [place] % (Auto) 6.1 Eos % (Auto) 1.1 Baso % (Auto) 0.2 Neut # (Auto) 7.40 H Lymph # (Auto) 1.30 [place] # (Auto) 0.60 Eos # (Auto) 0.10 Baso # (Auto) 0.02 Sodium 139 Potassium 4.1 Chloride 108 Carbon Dioxide 27 BUN 21 Creatinine 0.8 Estimated Creat Clear 58.57 Estimated GFR 87 Glucose 108 Calcium 8.6 SARS-CoV-2 (PCR) Negative SARS-CoV-2 Diagnostic results Additional Comments: An AP pelvis, AP and cross-table lateral view of the right hip show a displaced femoral neck fracture. There is no pre-existing hip joint arthritis, no obvious pathologic lesion. Assessment and Plan Assessment and plan (1) Femoral neck fracture: Status: Acute Total time spent: Total time spent is greater than 50% in coordination of care (as documented) at patient's floor/unit and/or counseling patient: (2) Recurrent falls: Status: Acute Total time spent: Total time spent is greater than 50% in coordination of care (as documented) at patient's floor/unit and/or counseling patient: (3) Cerebellar ataxia: Status: Acute Total time spent: Total time spent is greater than 50% in coordination of care (as documented) at patient's floor/unit and/or counseling patient: (4) Obstructive sleep apnea: Problem comment: Have bring in home CPAP Status: Acute Total time spent: Total time spent is greater than 50% in coordination of care (as documented) at patient's floor/unit and/or counseling patient: (5) Unsteady gait: Problem comment: Physical therapy after surgery Status: Acute Total time spent: Total time spent is greater than 50% in coordination of care (as documented) at patient's floor/unit and/or counseling patient: Plan Assessment: Displaced right femoral neck fracture Plan: The patient has been medically cleared for surgery. I told him that his injury is best treated with cemented bipolar hemiarthroplasty. We will plan to take him to the operating room this afternoon.
--- NOTE | 2022-04-29 14:39 | PC.SOCIAL ---
Met with pt in pt's room. Phone call to pt's , Sandrine, to include her in discharge planning conversation. Discussed that pt may need SNF after surgery. Sandrine would like pt to go to a SNF in [facility]. Informed pt and pt's that beds have been limited, but this worker will look in [facility] first if SNF is recommended. Provided pt's with this worker's phone number if there are any further questions. Social work will follow up as necessary.
[2022-04-29] MEDS: CEFAZOLIN 2 GM in 0.9 % SODIUM CHLORIDE Mini-bag 100 ML IVPB ×2 (14:54→23:03)
--- NOTE | 2022-04-29 15:00 | CRLHL7_ITS ---
For Patients: As a result of the Cures Act, medical imaging exams and procedure reports are released immediately into your electronic medical record. You may view this report before your referring provider. If you have questions, please contact your health care provider. Indication: right total hip anterior approach Technique: AP hip fluoroscopic images. Fluoroscopy time 25.1 seconds. Findings/Impression: Hardware from a right bipolar hip arthroplasty is in satisfactory position. Dictated by Adonay Cisneros MD @ 04/30/2022 9:38:37 AM (Electronically Signed)
--- NOTE | 2022-04-29 16:53 | CRLHL7_ITS ---
For Patients: As a result of the Cures Act, medical imaging exams and procedure reports are released immediately into your electronic medical record. You may view this report before your referring provider. If you have questions, please contact your health care provider. Indication: Postop Technique: AP hip centered pelvis and lateral view right hip Findings/Impression: Hardware from a right bipolar hip arthroplasty is in satisfactory position. Bone alignment is normal. No sign of acute fracture. Postop changes are within normal limits. Dictated by Adonay Cisneros MD @ 04/30/2022 9:39:30 AM (Electronically Signed)
--- NOTE | 2022-04-29 16:55 | W.PM.NB ---
Nerve Block Nerve Block Time Seen by Provider: 14:45 Date Seen: 04/29/22 Type of block requested by surgeon for post-operative analgesia: PHILIPPE/LFCN Side: right Time out performed: Yes Verification of patient name: Yes Verification of date of : Yes Site marking: site marked Name of person performing procedure: Stalin Payne Continuous monitoring Was continuous monitoring of O2 sat, B/P, traffic monitor specialist, recorded every 15 minutes?: Yes Procedure Checklist: sterile prep, needles and gloves Ultrasound guided. Images saved: Yes Medications given in 5ml increments after negative aspiration: Marcaine %: 0.5 mL: 30 Needle gauge: 20 Decadron (mg): 10 Precedex (mcg): 25 Patient tolerated procedure well: Yes Additional comments: Injected in 5ml increments after negative aspiration. Block Charges Block Charge (with Pro Fee): Other Periph Nerve Block Use of Ultrasound Machine for Block: Yes- US Guidance/pain block
--- NOTE | 2022-04-29 17:01 | PM.ORPRC ---
Procedure Note Date of procedure: 04/29/22 Procedure: PREOPERATIVE DIAGNOSIS: Right hip displaced femoral neck fracture POSTOPERATIVE DIAGNOSIS: Right hip displaced femoral neck fracture NAME OF OPERATION: Right hip cemented bipolar hemiarthroplasty SURGEON: Kamron Childs MD CORE OVEN TENDER: Dina Cason PA-C IMPLANTS: 1. Actis delete # 6 standard collared stem 2. 28 + 5 cobalt chrome femoral head 3. 54 mm bipolar component ANESTHESIA: Spinal ESTIMATED BLOOD LOSS: 100 cc COMPLICATIONS: None SPECIMENS: None DRAINS: None PREOPERATIVE ANTIBIOTICS: Ancef 2 g INDICATIONS: The patient is a 86-year-old who fell yesterday sustaining a right hip femoral neck fracture. The patient was admitted for workup and management. They have been medically cleared for surgery. Operative intervention was recommended. The risks, benefits and expected outcomes were discussed in detail. These included but were not limited to: Infection, bleeding, injury to blood vessel or nerve, venous thromboembolism. All questions were answered to their satisfaction. Use of an assistant maintenance manager was necessary throughout the case for patient positioning and safety, soft tissue retraction and closure. PROCEDURE: Spinal anesthesia was administered. The patient was placed supine on the [place] table. The assistant maintenance manager made sure the patient was properly positioned. The hip was prepped and draped in the usual sterile fashion. The image intensifier was brought in for a perfect AP pelvis and a perfect double tear drop AP view of each hip which were used for intraoperative templating with our fluoroscopic guide. An oblique incision was made 3 cm distal and 3 cm lateral to the anterior superior iliac spine. The assistant maintenance manager retracted the soft tissues to protect them. Subcutaneous dissection was taken with electrocautery to the superficial fascia. The fascia was divided in line with the incision. Blunt dissection was carried medially to the tensor fascia justo and sartorius interval. Deep dissection was carried with electrocautery. The circumflex vessels were cauterized and divided. The capsule was exposed and then divided in a T-fashion, tagged with #1 Ethibond sutures. Retractors were placed in the joint, held by the assistant maintenance manager. The corkscrew was placed in the femoral head. The neck cut was made in the subcapital region. We made a second neck cut more distal. The napkin ring of bone was removed. The femoral head was removed. The limb was placed in 140 degrees of external rotation, maximum extension and adduction. A significant amount of time was spent releasing the capsule to allow us to deliver the femur into the wound and complete the femoral side safely. Retractors were held by the assistant maintenance manager throughout the femoral preparation. The box toe cementer and canal finder were used. Broaches were used to a stable size. The calcar reamer was used. Trial components were placed. The hip was reduced and was found to be stable with appropriate soft tissue tension. Length and offset had been nicely restored using the image intensifier and our fluoroscopic guide. Trial components were removed. The cement restrictor was placed. The canal was irrigated with pulse lavage then thoroughly dried. Cement was placed with the cement gun and hand pressurized. The # 6 Actis stem was placed in the canal. Excessive cement was removed, the cement was allowed to harden. The 28 mm + 5 cobalt chrome femoral head and the 54 mm bipolar component were placed. The hip was reduced and again was found to be stable with appropriate soft tissue tension. Leg lengths appear equal. The assistant maintenance manager irrigated the wound with 3 liters of normal saline via pulse lavage. The assistant maintenance manager repaired the anterior capsule with a #1 Vicryl and our previously placed Ethibond sutures. The assistant maintenance manager closed the fascia over the tensor fascia justo with a #1 PDO Stratafix, subcutaneous tissues with 2-0 Vicryl, skin with a running 3-0 Stratafix and glue. A dry dressing was applied by the assistant maintenance manager. Sponge and needle counts were correct x 2. The patient tolerated the procedure well; there were no apparent complications. They were awakened and extubated in the operating room, sent to the Post-Anesthesia Care Unit in satisfactory condition. PLAN: 1. The patient will be mobilized with physical therapy, weight-bearing as tolerates 2. Xarelto x 5 days then aspirin x 30 days will be used for DVT prophylaxis 3. The patient will be discharged to a custodial facility once medically appropriate
--- NOTE | 2022-04-29 17:40 | P.ANES_ITS ---
Anesthesia Charges Start Date/Time Anesthesia Start Date: 04/29/22 Anesthesia Start Time: 14:29 Stop Date/Time Anesthesia Stop Date: 04/29/22 Anesthesia Stop Time: 17:38 Summary Extremes of Age - Over 70 or under 1: [address] DEPARTMENT
--- NOTE | 2022-04-29 18:11 | PC.NURSE ---
Pt calm and cooperative during shift. Pt had pain range of 0-2 through out shift. Pt was on bed rest during shift. Pt was brought down to surgery at approximately 1430. Awaiting Pt return to surgical floor. Pt was alert and oriented x 3 during shift. Pt NPO during shift. Pt vital signs stable through out shift.
--- NOTE | 2022-04-29 18:17 | PC.NURSE ---
Addendum entered by Dyan Fontenot RN 04/29/22 18:36: Pt alert to name Original Note: Pt returned to surgery floor at approximately 619pm. Pt has Radford catheter inserted and a bear hugger on. Pt alert.
--- NOTE | 2022-04-29 18:24 | SUR.PHASEI ---
patient met discharge criteria per anesthesia
[2022-04-29] MEDS: MELATONIN 3 MG TABLET PO (21:10)
[2022-04-29] MEDS: SENNOSIDES 1 TAB TABLET 2 TAB PO (21:11)
[2022-04-29] MEDS: OCUVITE TABLET 1 TAB PO (21:21)
[2022-04-29] MEDS: SODIUM CHLORIDE 0.9 % (FLUSH) 10 ML SYRINGE 5 ML IVF (23:14)
[2022-04-29] MEDS: ONDANSETRON 2 MG/ML inj 4 MG IVP (23:14)
[2022-04-30 03:00] VITALS: BP 114/88; PULSE 80; RESP 16; TEMP 36.7; O2SAT 93
--- NOTE | 2022-04-30 06:02 | PC.NURSE ---
[id number] Pt rested during night, pivot transfer to BSC x1 with walker, GB and 2 assist, did not tolerate this very well, pt had difficulty with NWB to RLE. emesis x1 at 2300, zofran administered with relief, no N/V since. Ice to R hip, dressing C/D/I pain 0/10 to hip, c/o chronic neck pain. Preferred to sleep on R side, pillow between knees. CPAP on while sleeping. Pt did not want foot SCD's on, educated on blood clot prevention and circulation, pt insistent on taking them off.
[2022-04-30 06:34] LABS: Hematocrit 38.2 % (37.0-53.0); Hemoglobin* 12.9 gm/dL (13.5-17.5); Mean Corpuscular HGB Conc 34 gm/dL (32-36); Mean Corpuscular Hemoglobin 30 pg (26-34); Mean Corpuscular Volume 90 fL (80-100); Platelet Count* 216 K/uL (140-440); Red Blood Count 4.24 m/uL (4.30-5.90); White Blood Count* 9.54 K/uL (4.50-11.00)
[2022-04-30 06:36] LABS: Slide Review Reflex No
[2022-04-30 06:55] LABS: Potassium* 4.2 mmol/L (3.6-5.1); Sodium* 136 mmol/L (135-149)
[2022-04-30] MEDS: CEFAZOLIN 2 GM in 0.9 % SODIUM CHLORIDE Mini-bag 100 ML IVPB ×2 (06:55→14:42)
[2022-04-30 06:58] LABS: Creatinine* 0.7 mg/dL (0.5-1.5); Est. Creatinine Clearance* 58.57; Estimated Glomerular Filt Rate 91 ml/min
[2022-04-30 06:59] LABS: Blood Urea Nitrogen* 14 mg/dL (7-30)
[2022-04-30 07:00] VITALS: BP 124/77; PULSE 87; RESP 87; TEMP 36.9; O2SAT 93
[2022-04-30] MEDS: RIVAROXABAN 10 MG TABLET PO (08:37)
[2022-04-30] MEDS: SENNOSIDES 1 TAB TABLET 2 TAB PO ×2 (08:37→20:44)
--- NOTE | 2022-04-30 10:49 | P.ORPN_ITS ---
Subjective Subjective Time Seen by Provider: 08:00 Date Seen: 04/30/22 Principal diagnosis: Status post right hip bipolar arthroplasty for femoral neck fracture. Interval history: Wicho is comfortable at rest in his bed this morning. He states he has discomfort with movement. Plan for discharge is to a group home facility. He can weight bear as tolerated on his right lower extremity. Ortho Exam Narrative Exam Narrative: Alert and oriented x3. Patient is in no acute distress. Converses without labored breathing. Hearing is grossly intact. Examination of the right hip shows ecchymosis is present. Mild soft tissue edema about the right hip. Dressing is intact. CMS is intact right lower extremity. Bilateral calves are soft and nontender. Const Vital Signs, click to edit/add: Vital Signs - 24 hr 04/29/22 11:00 04/29/22 17:35 04/29/22 17:40 Temperature 98.7 F 97.6 F 97.6 F Pulse Rate 86 83 Pulse Rate [Pulse Oximeter] 94 Respiratory Rate 14 20 20 Blood Pressure 114/86 118/69 Blood Pressure [Left Arm] 152/90 H Pulse Oximetry 94 96 92 Oxygen Delivery Method Room Air Room Air OxyMask Oxygen Flow Rate 6 04/29/22 17:45 04/29/22 17:50 04/29/22 17:55 Temperature 97.6 F 97.6 F 97.6 F Pulse Rate 85 86 86 Pulse Rate [Pulse Oximeter] Respiratory Rate 20 14 14 Blood Pressure 118/108 H 107/74 116/91 H Blood Pressure [Left Arm] Pulse Oximetry 100 96 98 Oxygen Delivery Method OxyMask OxyMask OxyMask Oxygen Flow Rate 6 6 6 04/29/22 18:00 04/29/22 18:05 04/29/22 18:10 Temperature 97.6 F 98 F 98 F Pulse Rate 86 86 87 Pulse Rate [Pulse Oximeter] Respiratory Rate 14 14 15 Blood Pressure 116/91 H 116/91 H 126/82 Blood Pressure [Left Arm] Pulse Oximetry 98 98 98 Oxygen Delivery Method OxyMask Room Air Room Air Oxygen Flow Rate 6 04/29/22 18:19 04/29/22 18:30 04/29/22 18:45 Temperature 96.3 F L 98.0 F 97.5 F L Pulse Rate 92 Pulse Rate [Pulse Oximeter] 93 85 Respiratory Rate 14 14 14 Blood Pressure Blood Pressure [Left Arm] 129/89 135/81 122/78 Pulse Oximetry 93 94 Oxygen Delivery Method Room Air Room Air Room Air Oxygen Flow Rate 0 04/29/22 19:00 04/29/22 19:00 04/29/22 19:15 Temperature 97.5 F L 97.5 F L 97.5 F L Pulse Rate Pulse Rate [Pulse Oximeter] 99 99 100 Respiratory Rate 18 18 16 Blood Pressure Blood Pressure [Left Arm] 104/73 104/73 142/79 H Pulse Oximetry 93 93 92 Oxygen Delivery Method Room Air Room Air Room Air Oxygen Flow Rate 0 0 0 04/29/22 19:45 04/29/22 20:15 04/29/22 21:15 Temperature 97.6 F 98 F 98.5 F Pulse Rate Pulse Rate [Pulse Oximeter] 95 102 H 99 Respiratory Rate 16 16 16 Blood Pressure Blood Pressure [Left Arm] 128/95 H 127/81 132/69 Pulse Oximetry 93 93 94 Oxygen Delivery Method Room Air Room Air Room Air Oxygen Flow Rate 0 0 0 04/29/22 22:00 04/29/22 23:00 04/29/22 23:00 Temperature 98.6 F 98.8 F Pulse Rate Pulse Rate [Pulse Oximeter] 96 99 Respiratory Rate 16 16 16 Blood Pressure Blood Pressure [Left Arm] 158/75 H 107/67 Pulse Oximetry 93 92 Oxygen Delivery Method Room Air Room Air Oxygen Flow Rate 0 0 04/29/22 23:00 04/30/22 03:00 04/30/22 07:00 Temperature 98.8 F 98.1 F 98.5 F Pulse Rate Pulse Rate [Pulse Oximeter] 99 80 87 Respiratory Rate 16 16 87 H Blood Pressure Blood Pressure [Left Arm] 107/67 114/88 124/77 Pulse Oximetry 92 93 93 Oxygen Delivery Method Room Air CPAP Room Air Oxygen Flow Rate 0 0 04/30/22 07:00 Temperature Pulse Rate Pulse Rate [Pulse Oximeter] 87 Respiratory Rate 87 H Blood Pressure Blood Pressure [Left Arm] Pulse Oximetry Oxygen Delivery Method Oxygen Flow Rate Assessment and Plan Assessment and plan (1) Femoral neck fracture: Status: Acute (2) Recurrent falls: Status: Acute (3) Cerebellar ataxia: Status: Acute (4) Obstructive sleep apnea: Problem details: Have bring in home CPAP Status: Acute (5) Unsteady gait: Problem details: Physical therapy after surgery Status: Acute (6) Status post hip surgery: Problem details: Femoral neck fracture, bipolar hemiarthroplasty on 04/29/2022, Dr. Childs Status: Acute Assessment and Plan: Plan for discharge is today to home if they meet discharge criteria. DVT prophylaxis includes Xarelto 10 mg daily for total of 5 days, then aspirin 81 mg twice daily for 30 days, Elvin stockings x1 month may remove for 1 hr per day, frequent ambulation Remove dressing 1 week. Observe wound and phone Orthopedics with any questions or concerns Use Ice on operative hip unrestricted. Return to clinic in [address] Childs Minimize narcotic use. Wean off and discontinue soon as possible. Weightbear as tolerated right lower extremity. Attend OT and PT at group home facility daily. Discharge meds have not been written, for I am unsure of the pharmacy to send them to at this point. Waiting on social worker clinical.
[2022-04-30 11:00] VITALS: BP 107/61; PULSE 94; RESP 18; TEMP 37.1; O2SAT 96
[2022-04-30] MEDS: ACETAMINOPHEN 325 MG TABLET 650 MG PO ×2 (12:10→18:03)
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
[2022-04-30] MEDS: SODIUM CHLORIDE 0.9 % (FLUSH) 10 ML SYRINGE 5 ML IVF ×2 (14:40→20:45)
[2022-04-30 15:00] VITALS: BP 103/65; PULSE 79; RESP 18; TEMP 37.4; O2SAT 94
--- NOTE | 2022-04-30 15:11 | P.IMPN_ITS ---
Progress Note: A&P Assessment and plan (1) Femoral neck fracture: Problem details: Bipolar arthroplasty 04/29/2022. No obvious operative complications Status: Acute (2) Recurrent falls: Problem details: longstanding problem due to cerebellar ataxia Status: Acute (3) Cerebellar ataxia: Status: Acute (4) Obstructive sleep apnea: Problem details: Have bring in home CPAP Status: Acute (5) Status post hip surgery: Problem details: Femoral neck fracture, bipolar hemiarthroplasty on 04/29/2022, Dr. Childs Status: Acute Plan continue postoperative care and management with therapy and pain management. Anticipate probable need for longterm facility for rehab prior To returning home. Time Spent With Patient Total time spent: Total time spent today is 30 minutes, 20 minutes in coordination of care discussing with patient and other providers postoperative care Subjective Date Seen: 04/30/22 Interval history: 86-year-old male seen in followup of femoral neck fracture status post bipolar arthroplasty day 1. Patient reports doing fairly well today. He reports no pain at rest and minimal pain with ambulation. He is requiring standby assist of 2. He reports that is going fairly well. 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 he has no other concerns today. He did have 1 emesis yesterday. No nausea this morning Exam Narrative: Exam Narrative: he is alert and appears in no distress. Speech is normal but halting. Respirations are clear to auscultation. Cardiovascular: S1, S2, regular rate and rhythm. No murmur gallop or rub. Abdomen: Bowel sounds active. Abdomen is soft without tenderness or mass. Extremities with intact pulses and sensation bilaterally. He moves his feet well. Const: Vital Signs, click to edit/add: Vital Signs - 24 hr 04/29/22 17:35 04/29/22 17:40 04/29/22 17:45 Temperature 97.6 F 97.6 F 97.6 F Pulse Rate 86 83 85 Pulse Rate [Pulse Oximeter] Respiratory Rate 20 20 20 Blood Pressure 114/86 118/69 118/108 H Blood Pressure [Le ft Arm] Blood Pressure [Ri ght Arm] Pulse Oximetry 96 92 100 Oxygen Delivery Me thod Room Air OxyMask OxyMask Oxygen Flow Rate 6 6 04/29/22 17:50 04/29/22 17:55 04/29/22 18:00 Temperature 97.6 F 97.6 F 97.6 F Pulse Rate 86 86 86 Pulse Rate [Pulse Oximeter] Respiratory Rate 14 14 14 Blood Pressure 107/74 116/91 H 116/91 H Blood Pressure [Le ft Arm] Blood Pressure [Ri ght Arm] Pulse Oximetry 96 98 98 Oxygen Delivery Me thod OxyMask OxyMask OxyMask Oxygen Flow Rate 6 6 6 04/29/22 18:05 04/29/22 18:10 04/29/22 18:19 Temperature 98 F 98 F 96.3 F L Pulse Rate 86 87 92 Pulse Rate [Pulse Oximeter] Respiratory Rate 14 15 14 Blood Pressure 116/91 H 126/82 Blood Pressure [Le ft Arm] 129/89 Blood Pressure [Ri ght Arm] Pulse Oximetry 98 98 Oxygen Delivery Me thod Room Air Room Air Room Air Oxygen Flow Rate 04/29/22 18:30 04/29/22 18:45 04/29/22 19:00 Temperature 98.0 F 97.5 F L 97.5 F L Pulse Rate Pulse Rate [Pulse Oximeter] 93 85 99 Respiratory Rate 14 14 18 Blood Pressure Blood Pressure [Le ft Arm] 135/81 122/78 104/73 Blood Pressure [Ri ght Arm] Pulse Oximetry 93 94 93 Oxygen Delivery Me thod Room Air Room Air Room Air Oxygen Flow Rate 0 0 04/29/22 19:00 04/29/22 19:15 04/29/22 19:45 Temperature 97.5 F L 97.5 F L 97.6 F Pulse Rate Pulse Rate [Pulse Oximeter] 99 100 95 Respiratory Rate 18 16 16 Blood Pressure Blood Pressure [Le ft Arm] 104/73 142/79 H 128/95 H Blood Pressure [Ri ght Arm] Pulse Oximetry 93 92 93 Oxygen Delivery Me thod Room Air Room Air Room Air Oxygen Flow Rate 0 0 0 04/29/22 20:15 04/29/22 21:15 04/29/22 22:00 Temperature 98 F 98.5 F 98.6 F Pulse Rate Pulse Rate [Pulse Oximeter] 102 H 99 96 Respiratory Rate 16 16 16 Blood Pressure Blood Pressure [Le ft Arm] 127/81 132/69 158/75 H Blood Pressure [Ri ght Arm] Pulse Oximetry 93 94 93 Oxygen Delivery Me thod Room Air Room Air Room Air Oxygen Flow Rate 0 0 0 02/21/23 23:00 04/29/22 23:00 04/29/22 23:00 Temperature 98.8 F 98.8 F Pulse Rate Pulse Rate [Pulse Oximeter] 99 99 Respiratory Rate 16 16 16 Blood Pressure Blood Pressure [Le ft Arm] 107/67 107/67 Blood Pressure [Ri ght Arm] Pulse Oximetry 92 92 Oxygen Delivery Me thod Room Air Room Air Oxygen Flow Rate 0 0 04/30/22 03:00 04/30/22 07:00 04/30/22 07:00 Temperature 98.1 F 98.5 F Pulse Rate Pulse Rate [Pulse Oximeter] 80 87 87 Respiratory Rate 16 87 H 87 H Blood Pressure Blood Pressure [Le ft Arm] 114/88 124/77 Blood Pressure [Ri ght Arm] Pulse Oximetry 93 93 Oxygen Delivery Me thod CPAP Room Air Oxygen Flow Rate 0 04/30/22 11:00 Temperature 98.8 F Pulse Rate Pulse Rate [Pulse Oximeter] 94 Respiratory Rate 18 Blood Pressure Blood Pressure [Le ft Arm] Blood Pressure [Ri ght Arm] 107/61 Pulse Oximetry 96 Oxygen Delivery Me thod Room Air Oxygen Flow Rate Documenting provider has reviewed patient's vital signs: yes Labs Labs: Laboratory Results - last 24 hr 04/30/22 04/30/22 05:59 05:59 WBC 9.54 RBC 4.24 L Hgb 12.9 L Hct 38.2 MCV 90 MCH 30 MCHC 34 Plt Count 216 Sodium 136 Potassium 4.2 BUN 14 Creatinine 0.7 Estimated Creat Clear 58.57 Estimated GFR 91
--- NOTE | 2022-04-30 18:28 | PC.NURSE ---
End of Shift: Patient pleasant, cooperative, and forgetful. Patient vitally stable, lungs clear, BS WNL, IV intact. Patient denies pain. Patient 2 assist, walker. Patient has been up in chair majority of day. Patient tolerating regular diet. Radford removed in afternoon.
[2022-04-30] MEDS: OCUVITE TABLET 1 TAB PO (18:45)
[2022-04-30 19:00] VITALS: BP 111/69; PULSE 77; RESP 18; TEMP 36.8; O2SAT 91
[2022-04-30] MEDS: NAPROXEN 250 MG TABLET PO (20:44)
[2022-04-30 23:00] VITALS: BP 108/69; PULSE 81; RESP 18; TEMP 36.6; O2SAT 92
[2022-05-01] MEDS: ACETAMINOPHEN 325 MG TABLET 650 MG PO ×3 (01:07→12:16)
[2022-05-01 03:00] VITALS: BP 94/62; PULSE 67; RESP 18; TEMP 36.4; O2SAT 92
--- NOTE | 2022-05-01 05:31 | PC.NURSE ---
Addendum entered by Marquise Nielsen RN 05/01/22 06:50: Pt voided 2x tonight post urinary catheter removal. Original Note: Shift note: Pt is progressing slowly with A2, walker and GB. Pt had difficulty bearing weight on the right lower extremity. Confirmed minimal pain between 3 and 5 and refused PRN medication. Pt had CPAP on throughout the night and had adequate sleep. Used urinal in bed, ice pack applied. At 2200, when underwriter solicitation director attempted to put on the CPAP and adjusted it into a comfortable position pt started cursing and shouting at underwriter solicitation director by using words like godamm it. Pt later appologized to underwriter solicitation director for using such words.
[2022-05-01 06:32] LABS: Hematocrit 35.5 % (37.0-53.0); Hemoglobin* 12.1 gm/dL (13.5-17.5); Mean Corpuscular HGB Conc 34 gm/dL (32-36); Mean Corpuscular Hemoglobin 31 pg (26-34); Mean Corpuscular Volume 91 fL (80-100); Platelet Count* 187 K/uL (140-440); Red Blood Count 3.89 m/uL (4.30-5.90); White Blood Count* 7.89 K/uL (4.50-11.00)
[2022-05-01 06:37] LABS: Slide Review Reflex No
[2022-05-01 06:44] LABS: Potassium* 3.8 mmol/L (3.6-5.1); Sodium* 136 mmol/L (135-149)
[2022-05-01 06:47] LABS: Blood Urea Nitrogen* 21 mg/dL (7-30); Creatinine* 0.8 mg/dL (0.5-1.5); Est. Creatinine Clearance* 58.57; Estimated Glomerular Filt Rate 87 ml/min
[2022-05-01 07:20] VITALS: BP 107/61; PULSE 73; RESP 20; TEMP 36.9; O2SAT 94
[2022-05-01] MEDS: FLUTICASONE PROPIONATE NASAL 2 SPRAY NOSTRIL-B (09:38)
[2022-05-01] MEDS: SENNOSIDES 1 TAB TABLET 2 TAB PO (09:38)
[2022-05-01] MEDS: RIVAROXABAN 10 MG TABLET PO (09:38)
[2022-05-01] MEDS: SODIUM CHLORIDE 0.9 % (FLUSH) 10 ML SYRINGE 5 ML IVF (09:39)
[2022-05-01 11:00] VITALS: BP 108/66; PULSE 63; RESP 20; TEMP 36.8; O2SAT 95
--- NOTE | 2022-05-01 11:11 | P.DS_ITS ---
DS: Providers Provider Date Seen: 05/01/22 Date of admission: 04/29/22 11:15 Primary care physician: Hipolito Quintero MD Admitting Clinician: Adonay Ordoñez MD Consults: s Attending Physician on discharge: Baron Ponce MD Date of Discharge: 05/01/22 DS: Diagnosis Discharge Diagnosis (1) Femoral neck fracture: Status: Acute Problem details: Bipolar arthroplasty 04/29/2022. No obvious operative complications (2) Recurrent falls: Status: Acute Problem details: longstanding problem due to cerebellar ataxia (3) Cerebellar ataxia: Status: Acute Problem details: Patient appears to be somewhat parkinsonian with bradykinesia, rigidity, mild tremor but has responded poorly to Sinemet in the past (4) Obstructive sleep apnea: Status: Acute Problem details: Using home CPAP (5) Status post hip surgery: Status: Acute Problem details: Femoral neck fracture, bipolar hemiarthroplasty on 04/29/2022, Dr. Childs DS: Summary Hospital Course Hospital Course: Wicho Bhardwaj is a 86 year old male admitted to the hospital after a fall at [facility].? He had an accidental fall at home without loss of consciousness.? When this occurred he was having right hip pain and unable to bear weight.? He came to the emergency department where he was found to have a right femoral neck fracture.? Other evaluation did not show any other significant injury.? He did not hit his head.? He does have chronic neck pain but does not think he had a neck injury.? He reports no other pain.? He has not had any recent symptoms of illness. Patient has had longstanding history of problems with gait and balance.? He does have frequent falls.? He walks with a walker.? He and his live at [place] They have hired home instead hemodialysis patient care specialist for 13 hours a day.? He fell with his hemodialysis patient care specialist nearby. He has been evaluated [facility] over the last several years for his problems with balance and falling.? There was suspicion he may have a parkinsonian syndrome.? He did take Sinemet which made him worse.? He does have some tremor, bradykinesia and imbalance.? 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 He underwent anterior approach bipolar arthroplasty under the care of Dr. Childs. He has had no operative complications and has done very well after surgery with pain control. He has made good progress with therapy though remains quite impaired. This is a problem that has been present for years prior to this injury. Status at Discharge Cognitive/behavioral status at discharge: Baseline Functional status at discharge: uses cane/walker Overall status at discharge: patient is progressing back to baseline Time Spent with Patient Time attestation: Total time spent providing and/or coordinating discharge services: Time spent: Greater than 30 minutes Exam Narrative: Exam Narrative: He is alert and appears in no distress. He is oriented to his circumstances. Respirations are clear to auscultation. Cardiovascular: S1, S2, regular rate and rhythm. No murmur gallop or rub. Abdomen: Bowel sounds active. Abdomen is soft without tenderness or mass. Hip incision is without significant erythema or drainage. He does have some moderate swelling in that proximal thigh on the right. Distally he has intact pulses sensation and motion in his ankles bilaterally Const: Vital Signs, click to edit/add: Vital Signs - 24 hr 04/30/22 15:00 04/30/22 15:00 04/30/22 19:00 Temperature 99.4 F 98.2 F Pulse Rate [Pulse Oximeter] 79 79 77 Respiratory Rate 18 18 18 Blood Pressure [Le ft Arm] Blood Pressure [Ri ght Arm] 103/65 111/69 Pulse Oximetry 94 91 Oxygen Delivery Me thod Room Air Room Air Oxygen Flow Rate 0 04/30/22 23:00 05/01/22 03:00 05/01/22 07:20 Temperature 97.8 F 97.6 F 98.4 F Pulse Rate [Pulse Oximeter] 81 67 73 Respiratory Rate 18 18 20 Blood Pressure [Le ft Arm] 107/61 Blood Pressure [Ri ght Arm] 108/69 94/62 Pulse Oximetry 92 92 94 Oxygen Delivery Me thod Room Air Room Air Room Air Oxygen Flow Rate 0 Documenting provider has reviewed patient's vital signs: yes DS: Data Data Completed and Pending Labs on day of discharge: Labs from last 24 hours 05/01/22 05/01/22 06:18 06:18 WBC 7.89 RBC 3.89 L Hgb 12.1 L Hct 35.5 L MCV 91 MCH 31 MCHC 34 Plt Count 187 Sodium 136 Potassium 3.8 BUN 21 Creatinine 0.8 Estimated Creat Clear 58.57 Estimated GFR 87 Discharge Plan Discharge Disposition: [facility] Date of Admission: 04/29/22 11:15 Attending Provider on Discharge: Baron Ponce Primary Care Provider: Hipolito Quintero Condition: Stable Discharge Medications: New zolpidem [Ambien] 5 mg tablet 5 mg PO QHS PRNQty: 30 0RF oxycodone 5 mg capsule 2.5 mg PO Q4H PRN (Reason: pain) Qty: 20 0RF naproxen sodium [Aleve] 220 mg capsule 220 mg PO BID PRN (Reason: pain) Qty: 30 0RF rivaroxaban 10 mg tablet 10 mg PO DAILY Qty: 5 0RF Rx Instructions: for 35 days senna 8.6 mg capsule 17.2 mg PO BID PRN (Reason: constipation) Qty: 30 0RF Continued acetaminophen 500 mg tablet 1,000 mg PO HS Calcium 600 with Vitamin D3 600 mg-10 mcg (400 unit) tablet,chewable 1 tab PO BIDWM fluticasone propionate 50 mcg/actuation spray,suspension 2 spray INTRANASAL DAILY Rx Instructions: BOTH NOSTRILS melatonin 3 mg tablet 3 mg PO HS PRN trospium 20 mg tablet 20 mg PO BIDWM PreserVision AREDS 2,148 mcg-113 mg-45 mg-17.4mg tablet 1 tab PO 2XW Held aspirin 81 mg tablet,delayed release (DR/EC) 81 mg PO DAILY Hold Instructions: Resume on 05/07/22. Hold aspirin until finished with rivaroxaban. Discontinued ibuprofen 200 mg tablet 400 mg PO Q6H PRN naproxen sodium 220 mg tablet 220 mg PO HS zolpidem 5 mg tablet 7.5 mg PO HS PRN (Reason: sleep) Discharge Orders: Discharge Order (Routine); Ordered 05/01/22 Ordered By: Baron Ponce Consulting provider completed their portion of the discharge: Yes Activity Level: Up with assist, Weight Bearing as Tolerated and Use Walker Discharge Diet: Regular Follow Up Appointments: Hipolito Quintero MD [Primary Care Provider] - Discharge Comments: Continue to use home CPAP Admit to: SNF Discharge Potential: Fair Length of Stay: 30-90 days Can use facility standing orders?: Yes Code Status: DNR TEDs: Bilateral Knee Rehab Potential: Fair Therapy: Physical Therapy and Occupational Therapy Therapy Orders: Evaluate and Treat, Gait Training and Total Hip Protocol Therapy Orders Additional Information: Daily PT and OT at assisted facility, no posterior hip precautions. Oxygen: No Orders are good >30 days: Yes
--- NOTE | 2022-05-01 11:33 | PC.SOCIAL ---
Discharge planning- Received a phone call from Sofya at [facility]. Sofya informed that [facility] is able to take pt due to having staff to accommodate the admission today. Sofya is confirming that the [facility] van can transport. Sofya will complete nurse to nurse. Provided update to charge nurse. Charge nurse informed that pt is ready for discharge in the afternoon after therapy evaluates pt. Received a phone call from Sofya at [facility]. Sofya states that she completed a nurse to nurse and was informed that pt is not ready for discharge today and pt is a heavy 2 assist to transfer. Sofya informs that she does not have the staff to accommodate a 2 assist. This worker informed that pt is ready for discharge and pt is being assessed this AM by therapy and this worker will call Sofya back after therapy evaluates to see how pt is transferring today. Phone call to charge nurse to discuss. Charge nurse will update this worker after therapy evaluation. Received phone call from charge nurse that pt is a 1 person assist to transfer (moderate assist) and pt is ready for discharge. Phone call to Sofya at [facility] to provide update. 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 Provided an update to charge nurse. Phone call to pt and provided him with an update on the discharge and short-term rehab stay. Pt states he is trying to get in contact with his to get clothing. Pt states typically sleeps until 12:00 pm. Phone call to pt's and left a voicemail providing an update on discharge and short-term rehab stay at [facility]. Provided the phone number to social work for pt's to reach if there are any further questions. Informed pt that this worker left a voicemail for his . Pt will continue to try to reach his . Completed preadmission screening. Confirmation #[id number]. Faxed PAS and therapy note from 05-01-22 to [facility]. Social work will continue to follow up as necessary.
[2022-05-01 12:39] VITALS: BP 108/66; PULSE 63; RESP 20; TEMP 36.8
--- NOTE | 2022-05-01 13:19 | PC.NURSE ---
Pt eval by ortho PA, Dr. Ponce, PT and OT. Please see eMar for meds given. Report called to accepting nurse at [facility]. D/C to SNF completed in EMR. Belongings and meds returned. 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 Pt wore hospital sweat pant suit for d/c. Dana did not arrive with his own clothing in time for transport.
== END 2022-05-01 13:10 | DRG 522 ==
LOC: ED 04-29 01:13 → MEDSURG 04-29 02:31
PROVIDERS: Orthopaedic Surgery; Admitting Provider Family Medicine; Emergency Provider Family Medicine; PCP Family Medicine; Visit Provider Family Medicine
PROC: 0SRR019 Replacement of Right Hip Joint, Femoral Surface with Metal Synthetic Substitute, Cemented, Open Approach (ICD-10-PCS; CPT 27130; principal; 2022-04-29 15:00)
DX: S72.091A Other fracture of head and neck of right femur, initial encounter for closed fracture (principal); G11.9 Hereditary ataxia, unspecified; R29.6 Repeated falls; G47.33 Obstructive sleep apnea (adult) (pediatric); Z91.81 History of falling; G47.00 Insomnia, unspecified; G31.9 Degenerative disease of nervous system, unspecified; W01.0XXA Fall on same level from slipping, tripping and stumbling without subsequent striking against object, initial encounter; G89.29 Other chronic pain; M54.2 Cervicalgia; G25.81 Restless legs syndrome
CPT/HCPCS: 01214; 36415; 71045; 73501; 73502; 76000; 76942; 80048; 82565; 84132; 84295; 84520; 85025; 85027; 87635; 93005; 97110; 97116; 97162; 97165; 97535; 99100; 99199; 99284; 99285; A9153; A9270; C1776; G0378; J0690; J1100; J2250; J2370; J2405; J2704; J3010; J3490; J7030; J7120

== ENCOUNTER 2022-06-05 06:41 | Outpatient (CLI) | payer MEDICARE, SELFPAY | END 2022-06-05 06:42 | disposition home or self-care (01) | LOC: AMB 06-06 06:42 | PROVIDERS: PCP Family Medicine; Visit Provider Family Medicine | DX: R53.1 Weakness (principal) | CPT/HCPCS: A0998 ==

== ENCOUNTER 2023-01-21 10:56 | Outpatient (CLI) | payer MEDICARE, SELFPAY ==
--- NOTE | 2023-01-21 11:15 | CRLHL7_ITS ---
For Patients: As a result of the Century Cures Act, medical imaging exams and procedure reports are released immediately into your electronic medical record. You may view this report before your referring provider. If you have questions, please contact your health care provider. INDICATION: Difficulty swallowing TECHNIQUE: Modified barium swallow. Fluoroscopic time 92 seconds. COMPARISON: 01/24/2021 FINDINGS/IMPRESSION: Decreased initiation of the swallowing mechanism. Mild residual barium located within the vallecula and piriform sinuses. No penetration or aspiration. No obstruction. Dictated by Adonay Cisneros MD @ 01/21/2023 11:55:05 AM (Electronically Signed)
--- NOTE | 2023-01-21 13:27 | SLP.EVAL ---
Dr. Méndez Please review, sign and return. Thank you Apple Turpin, IMPOSER IMPOSER Mohamud Mallory Start: 01/21/23 12:03 Freq: Status: Active Protocol: Document 01/21/23 12:03 [facility] (Rec: 01/21/23 12:20 [facility] [id number]) E-signed By Apple Turpin, ODELL, IMPOSER IMPOSER System Review History & Reason For Referral Type of Speech Evaluation Modified Barium Swallow Evaluation Rehabilitation Order Evaluation Date of Order 01/07/23 Reason for Referral coughing with eating. Treatment Diagnosis dysphagia Vision Information Vision Status Patient is wearing glasses Patient Orientation Orientation & Mental Status Processing is a little slow but appears oriented. IMPOSER Initial Assessment/POC Subjective Information Subjective/Pain Comment Patient brought to the xray suite via wheelchair. He is accompanied by his home health aid and friend. Caregiver's Name Kervin - friend; Vi - caregiver Assessment & Impression Assessment/Impression Patient is an 87 year old male referred for a modified barium swallow study due to intermittent coughing ( sometimes severe) with eating and drinking. He reports that it doesn't happen all the time but sometimes he can tell even before he swallows that he is going to cough. He tries to take small sips and bites. He notices it with juicy things such as an apple, orange or grape. Patient completed a modified barium swallow study in January 2021 and at that time he had delayed swallow initiation and pyriform residue requiring multiple swallows to clear. ORAL MOTOR FUNCTION AND DENTITION Patient able to adequately move tongue and lips. He has adequate natural dentition. THIN LIQUID Patient took several individual sips of thin liquid by cup. With each trial, he held the bolus in his mouth until a swallow was initiated. Initiation was mildly delayed but no premature spillage occurred. No penetration or aspiration occurred with any trial of thin liquid. PUREE Patient given a teaspoon of puree. He was able to manipulate and swallow without difficulty and with no penetration, aspiration or pharyngeal residue. MUFFIN AND COOKIE WITH BARIUM PUREE Patient given separate trials of muffin and cookie each mixed with barium puree. He was able to chew and swallow each without difficulty, penetration, aspiration or pharyngeal residue. IMPRESSIONS AND RECOMMENDATIONS Today, patient exhibits a safe functional swallow although his initiation was mildly delayed. No penetration, aspiration or pharyngeal residue occurred. Compared to this test two years ago, he had the same delay in swallow initiation but he was able to clear each bolus with one swallow this time which required 2-3 two years ago. Recommended to patient that he eat when upright and with no distractions. He should take small sips and bites and avoid mixing consistencies (liquid and solid). Therapist Signature & License # I Certify That Therapy Services Provided Therapist Signature & License Number Apple Turpin, [facility], # [id number] Physician Signature Signature of Physician Indicates Medically Needed Services Physician Signature & Date Required Please Sign/Date Here Speech/Language Pathology Billing Units Billing Units Eval Swallow Motion Fluoro 1
== END 2023-01-21 10:57 | disposition home or self-care (01) ==
LOC: RAD 10:58
PROVIDERS: PCP Family Medicine; Visit Provider Otolaryngology
DX: R13.10 Dysphagia, unspecified (principal)
CPT/HCPCS: 74230; 92611

== ENCOUNTER 2023-05-13 02:10 | Outpatient (CLI) | payer MEDICARE, SELFPAY | END 2023-05-13 02:11 | disposition home or self-care (01) | LOC: AMB 05-19 11:34 | PROVIDERS: PCP Family Medicine; Visit Provider Family Medicine | DX: R06.09 Other forms of dyspnea (principal) ==